=== PATIENT | female | born 1960 | race African-American/Black ===

== ENCOUNTER 2016-11-30 07:25 | Day surgery (SDC) | payer OTHER ==
[2016-11-28 13:43] VITALS: BMI 25.9
[~2016-11-30 07:25] MED LIST: TRIAMCINOLONE ACET 40MG/1ML VIAL IJ ONE
[2016-11-30] MEDS ORDERED: TRYPAN BLUE 0.5 ML DISP.SYRIN ONE (07:31)
[2016-11-30] MEDS ORDERED: CIPROFLOXACIN 0.3% EYE DROPS 5 ML BOTTLE ONE (07:36)
[2016-11-30] MEDS ORDERED: FLURBIPROFEN 0.03% OPHTH SOLN 2.5 ML BOTTLE ONE (07:36)
[2016-11-30] MEDS ORDERED: TROPICAMIDE 1% OPHTH SOLN 15 ML BOTTLE ONE (07:36)
[2016-11-30] MEDS ORDERED: PHENYLEPHRINE 2.5% OPHTH SOLN 15 ML BOTTLE ONE (07:36)
[2016-11-30] MEDS ORDERED: CYCLOPENTOLATE HCL 1% OPHTH SOLN 2 ML BOTTLE ONE (07:36)
[2016-11-30 07:40] VITALS: TEMP 98
[2016-11-30] MEDS ORDERED: ACETAMINOPHEN 325 MG TABLET (FP) PO PRN (07:50)
[2016-11-30] MEDS ORDERED: PHENYLEPHRINE 2.5% OPHTH SOLN 15 ML BOTTLE OD ONE ×3 (08:00→08:20)
[2016-11-30] MEDS ORDERED: PHENYLEPHRINE 2.5% OPHTH SOLN 15 ML BOTTLE OP SCH (08:00)
[2016-11-30] MEDS ORDERED: FLURBIPROFEN 0.03% OPHTH SOLN 2.5 ML BOTTLE OD ONE ×3 (08:00→08:20)
[2016-11-30] MEDS ORDERED: FLURBIPROFEN 0.03% OPHTH SOLN 2.5 ML BOTTLE OP SCH (08:00)
[2016-11-30] MEDS ORDERED: CIPROFLOXACIN HCL 0.3% OPHTH 2.5ML BOTTLE OD ONE ×3 (08:00→08:20)
[2016-11-30] MEDS ORDERED: CIPROFLOXACIN HCL 0.3% OPHTH 2.5ML BOTTLE OP SCH (08:00)
[2016-11-30] MEDS ORDERED: CYCLOPENTOLATE HCL 1% OPHTH SOLN 2 ML BOTTLE OP SCH (08:00)
[2016-11-30] MEDS ORDERED: CYCLOPENTOLATE HCL 1% OPHTH SOLN 2 ML BOTTLE OD ONE ×3 (08:00→08:20)
[2016-11-30] MEDS ORDERED: TROPICAMIDE 1% OPHTH SOLN 15 ML BOTTLE OP SCH (08:00)
[2016-11-30] MEDS ORDERED: TROPICAMIDE 1% OPHTH SOLN 15 ML BOTTLE OD ONE ×3 (08:00→08:20)
[2016-11-30] MEDS ORDERED: LIDOCAINE HCL 2% JELLY (5 ML/TUBE) TP ONE (09:45)
[2016-11-30] MEDS ORDERED: MIDAZOLAM HCL 2 MG/2 ML SINGLE DOSE VIAL ONE (09:57)
[2016-11-30] MEDS ORDERED: LIDOCAINE HCL 1% PRESERVATIVE FREE - 30ML VIAL IO ONE (10:09)
[2016-11-30] MEDS ORDERED: TRYPAN BLUE 0.5 ML DISP.SYRIN IO ONE (10:10)
[2016-11-30] MEDS ORDERED: CHONDROITIN SU A/HYALUR SOD 1 KIT IO ONE (10:10)
[2016-11-30] MEDS ORDERED: EPINEPHrine/PF 1 MG/1 ML (1:1,000) AMPULE IO ONE (10:11)
[2016-11-30] MEDS ORDERED: TRIAMCINOLONE ACET 40MG/1ML VIAL ONE (10:32)
[2016-11-30] MEDS ORDERED: TRIAMCINOLONE ACET 40MG/1ML VIAL IJ ONE (10:42)
[2016-11-30] MEDS ORDERED: ACETAMINOPHEN 325 MG TABLET (FP) ONE (11:25)
[2016-11-30] MEDS ORDERED: ACETAMINOPHEN 325 MG TABLET (FP) PO ONE (11:30)
[2016-11-30 12:06] VITALS: BP 122/67; PULSE 84
--- NOTE | 2016-11-30 13:18 | OP ---
DATE OF OPERATION: 11/30/2016 PREOPERATIVE DIAGNOSIS: Cataract, right eye. Associated diagnosis high myopia. POSTOPERATIVE DIAGNOSIS: Cataract, right eye. Associated diagnosis high myopia. PROCEDURE: Phacoemulsification of right cataract with posterior chamber intraocular lens implantation with capsular stain and Trypan blue. LENS USED: [id number] -5.0 diopter power. Serial No. [id number]. ANESTHESIA: Topical MAC. COMPLICATIONS: None. PROCEDURE: The patient was brought to the operating room and correctly identified, along with the operative site, as well as correct intraocular lens lorenz. She was then prepped and draped in the usual sterile fashion, including 5% Betadine solution in the conjunctival sac and an eyelid drape. An eyelid speculum was then placed into the right eye. A poor red reflex was noted as there was a dense cortical cataract. A paracentesis was created and intracameral lidocaine was given. The capsule was then stained with Trypan blue beneath an air bubble and viscoelastic injected to inflate the anterior chamber. A temporal clear corneal wound was created. A continuous circular capsulorrhexis was successfully performed. The cataract was then hydrodissected with BSS and removed with the phacoemulsification. The remaining cortical material was irrigated and aspirated from the eye. Viscoelastic was injected to inflate the capsular bag. The temporal clear corneal wound was enlarged to approximately 3 mm. The 3 piece intraocular lens implant was then inserted using the injector system into the capsular bag. Viscoelastic was irrigated and aspirated from the eye. The eye was pressurized with BSS and noted to be stable; however given the size of the wound a single 10-0 nylon suture was placed in the temporal clear corneal wound. At the end of the procedure, the anterior chamber was noted to be stable, no leakage noted from any wound. The implant noted to be within the bag and covered by the anterior capsular border. Topical vancomycin given, as well as a subconjunctival injection of Kenalog. The eye patched and shielded and the patient discharged from the operating room in a stable condition. STEPHEN MENDOZA M.D. [id number]
== END 2016-11-30 12:05 | disposition home or self-care (01) ==
LOC: JASU-SURG 07:25
PROVIDERS: ATTEND Ophthalmology
PROC: 08RJ3JZ Replacement of Right Lens with Synthetic Substitute, Percutaneous Approach (ICD-10-PCS; principal; 2016-11-30 10:00)
DX: H26.9 Unspecified cataract (principal); H52.11 Myopia, right eye

== ENCOUNTER 2016-12-14 07:46 | Day surgery (SDC) | payer OTHER ==
[2016-12-12 17:46] VITALS: BMI 25.9
[2016-12-14] MEDS ORDERED: ACETAMINOPHEN 325 MG TABLET (FP) PO PRN (07:51)
[2016-12-14] MEDS ORDERED: PHENYLEPHRINE 2.5% OPHTH SOLN 15 ML BOTTLE OP SCH (08:00)
[2016-12-14] MEDS ORDERED: FLURBIPROFEN 0.03% OPHTH SOLN 2.5 ML BOTTLE OP SCH (08:00)
[2016-12-14] MEDS ORDERED: CYCLOPENTOLATE HCL 1% OPHTH SOLN 2 ML BOTTLE OP SCH (08:00)
[2016-12-14] MEDS ORDERED: CIPROFLOXACIN HCL 0.3% OPHTH 2.5ML BOTTLE OP SCH (08:00)
[2016-12-14] MEDS ORDERED: TROPICAMIDE 1% OPHTH SOLN 15 ML BOTTLE OP SCH (08:00)
[2016-12-14] MEDS ORDERED: CIPROFLOXACIN 0.3% EYE DROPS 5 ML BOTTLE ONE (08:07)
[2016-12-14] MEDS ORDERED: CIPROFLOXACIN HCL 0.3% OPHTH 2.5ML BOTTLE OS ONE ×3 (08:15→08:30)
[2016-12-14] MEDS ORDERED: PHENYLEPHRINE 2.5% OPHTH SOLN 15 ML BOTTLE OS ONE ×3 (08:15→08:30)
[2016-12-14] MEDS ORDERED: TROPICAMIDE 1% OPHTH SOLN 15 ML BOTTLE OS ONE ×3 (08:15→08:30)
[2016-12-14] MEDS ORDERED: FLURBIPROFEN 0.03% OPHTH SOLN 2.5 ML BOTTLE OS ONE ×3 (08:15→08:30)
[2016-12-14] MEDS ORDERED: CYCLOPENTOLATE HCL 1% OPHTH SOLN 2 ML BOTTLE OS ONE ×3 (08:15→08:30)
[2016-12-14] MEDS ORDERED: LIDOCAINE HCL 1% PRESERVATIVE FREE - 30ML VIAL IO ONE (11:09)
[2016-12-14] MEDS ORDERED: LIDOCAINE HCL 2% JELLY (5 ML/TUBE) TP ONE (11:55)
[2016-12-14] MEDS ORDERED: MIDAZOLAM HCL 2 MG/2 ML SINGLE DOSE VIAL ONE (11:59)
[2016-12-14] MEDS ORDERED: TRYPAN BLUE 0.5 ML DISP.SYRIN IO ONE (12:12)
[2016-12-14] MEDS ORDERED: CHONDROITIN SU A/HYALUR SOD 1 KIT IO ONE (12:12)
[2016-12-14] MEDS ORDERED: EPINEPHrine/PF 1 MG/1 ML (1:1,000) AMPULE SQ ONE (12:13)
[2016-12-14] MEDS ORDERED: LIDOCAINE HCL/PF 2% SDV 5ML VIAL PNB ONE (12:18)
[2016-12-14 13:02] VITALS: TEMP 98
[2016-12-14 13:22] VITALS: BP 103/65; PULSE 65
--- NOTE | 2016-12-14 14:52 | OP ---
DATE OF OPERATION: 12/14/2016 SURGEON: Allen Avina M.D. PREOPERATIVE DIAGNOSIS: Mature cataract, left eye. POSTOPERATIVE DIAGNOSIS: Mature cataract, left eye. OPERATION: Phacoemulsification of left cataract with capsular staining with Trypan blue and posterior chamber intraocular lens implantation, lens used SN60AM, -5.0 Diopter power, Serial No. [id number]. ANESTHESIA: Sub-Tenon/ MAC. COMPLICATIONS: None. PROCEDURE: The patient was brought into the operating room and correctly identified along with the operative site as well as correct intraocular lens power. She was then prepped and draped in the usual sterile fashion including 5% Betadine solution in the conjunctival sac and an eyelid drape. An eyelid speculum was then placed into the left eye. A paracentesis port was created and intracameral Lidocaine was given, approximately 0.5 mL. The cataract was noted to be white and with a poor red reflex. The capsule was then stained with Trypan blue and irrigated from the eye with BSS., The anterior chamber filled with viscoelastic and a temporal clear corneal would was created. As a cystitome was placed inside the eye, the patient was noted to have frequent saccadic eye movements, and despite advising her to remain still and look straight ahead at the light, the patient still continued with the saccadic movements making visualization of the anterior capsule difficult. At this point, the decision was made to give a sub-Tenons block. Attention was paid to the inferonasal conjunctiva, and a small incision was made there with Daisy scissors, approximately 5 mm from the limbus. Then, 3 mL of 2% lidocaine were then given in the sub-Tenon space. After the block, the saccadic movement decreased and then ceased. The continuous circular capsulorrhexis was successfully performed. The nucleus was then hydro-dissected and then removed with phacoemulsification via a [id number] approach. The remaining cortical material was irrigated and aspirated from the eye. The temporal clear corneal wound was enlarged approximately 3 mm, and the lens was then injected into the bag. The remaining viscoelastic was irrigated and aspirated from the eye. All wounds were tested and found to be watertight. No suture was needed to be placed. Topical Vancomycin was given, the eye patched and shielded, and the patient discharged from the operating room in a stable condition. Rubi [id number] MTDGio
== END 2016-12-14 13:25 | disposition home or self-care (01) ==
LOC: JASU-SURG 07:46
PROVIDERS: ATTEND Ophthalmology
PROC: 08RK3JZ Replacement of Left Lens with Synthetic Substitute, Percutaneous Approach (ICD-10-PCS; principal; 2016-12-14 12:00)
DX: H25.092 Other age-related incipient cataract, left eye (principal); H55.81 Deficient saccadic eye movements

== ENCOUNTER 2019-07-31 09:39 | Emergency (ER) | payer OTHER ==
[2019-07-31 09:52] VITALS: BMI 22.7
[2019-07-31] MEDS ORDERED: SODIUM CHLORIDE 1,000 ML IV STA (11:20)
[2019-07-31] MEDS ORDERED: ACETAMINOPHEN 1000 MG/100 ML VIAL (NON FORMULARY) IVPB ONE (11:20)
--- NOTE | 2019-07-31 11:21 | PDOC ---
History of Present Illness - General Chief Complaint: Pain Stated Complaint: LWR ABD/LEG PAIN Time Seen by Provider: 07/31/19 11:02 History Source: Patient Exam Limitations: No Limitations Past History - Travel Traveled outside of the country in the last 30 days: No Close contact w/someone who was outside of country & ill: No - Past Medical History Allergies/Adverse Reactions: Allergies Allergy/AdvReac Type Severity Reaction Status Date / Time No Known Allergies Allergy Verified 07/31/19 09:52 Home Medications: Ambulatory Orders Amlodipine Besylate [Norvasc -] 10 mg PO DAILY 07/31/19 Aspirin [ASA -] 81 mg PO DAILY 07/31/19 Atorvastatin Ca [Lipitor] 20 mg PO HS 07/31/19 Losartan/Hydrochlorothiazide [Losartan-Hctz 100-25 mg Tab] 1 each PO DAILY 07/31 Metoprolol Succinate [Toprol Xl] 50 mg PO DAILY 07/31/19 Anemia: No Asthma: No Cancer: No Cardiac Disorders: Yes (tachycardia) CVA: No COPD: No CHF: No Dementia: No Diabetes: Yes (BORDERLINE) GI Disorders: No Disorders: No HTN: Yes Hypercholesterolemia: Yes Liver Disease: No Seizures: No Thyroid Disease: No - Surgical History Abdominal Surgery: (partial hysterectomy 2008) - Suicide/Smoking/Psychosocial Hx Smoking History: Never smoked Have you smoked in the past 12 months: No Number of Cigarettes Smoked Daily: 10 Information on smoking cessation initiated: No Hx Alcohol Use: Yes (3-4x a week) Drug/Substance Use Hx: No Substance Use Type: Marijuana Review of Systems - Review of Systems Able to Perform ROS?: Yes Comments:: 07/31/19 11:20 CONSTITUTIONAL: Absent: fever, chills, diaphoresis, generalized weakness, malaise, loss of appetite HEENT: Absent: rhinorrhea, nasal congestion, throat pain, throat swelling, difficulty swallowing, mouth swelling, ear pain, eye pain, visual Changes CARDIOVASCULAR: Absent: chest pain, loss of consciousness, palpitations, irregular heart rate, peripheral edema RESPIRATORY: Absent: cough, shortness of breath, dyspnea with exertion, orthopnea, wheezing, stridor, hemoptysis GASTROINTESTINAL: Present: abdominal pain Absent: abdominal distension, nausea, vomiting, diarrhea , constipation, melena, hematochezia GENITOURINARY: Absent: dysuria, frequency, urgency, hesitancy, hematuria, flank pain, genital pain MUSCULOSKELETAL: Present: b/l lower leg pain Absent: myalgia, arthralgia, joint swelling SKIN: Absent: rash, itching, pallor HEMATOLOGIC/IMMUNOLOGIC: Absent: easy bleeding, easy bruising, lymphadenopathy, frequent infections ENDOCRINE: Absent: unexplained weight gain, unexplained weight loss, heat intolerance, cold intolerance NEUROLOGIC: Absent: headache, focal weakness or paresthesias, dizziness, unsteady gait, seizure, mental status changes, bladder or bowel incontinence PSYCHIATRIC: Absent: anxiety, depression, suicidal or homicidal ideation, hallucinations. Is the patient limited Thai proficient: No *Physical Exam - Vital Signs Last Vital Signs Temp Pulse Resp BP Pulse Ox 98.3 F 92 H 19 118/76 98 07/31/19 09:49 07/31/19 09:49 07/31/19 09:49 07/31/19 09:49 07/31/19 09:49 - Physical Exam Comments: 07/31/19 11:22 GENERAL: Well developed, well nourished. Awake and alert. No acute distress. HEENT: Normocephalic, atraumatic. PERRLA, EOMI. No conjunctival pallor. Sclera are non- icteric. Moist mucous membranes. Oropharynx is clear. NECK: Supple. Full ROM. No JVD. Carotid pulses 2+ and symmetric, without bruits. No thyromegaly. No lymphadenopathy. CARDIOVASCULAR: Regular rate and rhythm. No murmurs, rubs, or gallops. Distal pulses are 2+ and symmetric. PULMONARY: No evidence of respiratory distress. Lungs clear to auscultation bilaterally. No wheezing, rales or rhonchi. ABDOMINAL: TTP of the LLQ. Soft. Non-tender. Non-distended. No rebound or guarding. No organomegaly. Normoactive bowel sounds. MUSCULOSKELETAL Normal range of motion at all joints. No bony deformities or tenderness. No CVA tenderness. EXTREMITIES: No cyanosis. No clubbing. No edema. No calf tenderness. SKIN: Warm and dry. Normal capillary refill. No rashes. No jaundice. NEUROLOGICAL: Alert, awake, appropriate. Cranial nerves 2-12 intact. No deficits to light touch and temperature in face, upper extremities and lower extremities. No motor deficits in the in face, upper extremities and lower extremities. Normoreflexic in the upper and lower extremities. Normal speech. Toes are down- going bilaterally. Gait is normal without ataxia. PSYCHIATRIC: Cooperative. Good eye contact. Appropriate mood and affect. ED Treatment Course - LABORATORY CBC & Chemistry Diagram: 07/31/19 11:50 07/31/19 11:50 Medical Decision Making - Medical Decision Making 07/31/19 15:42 The patient is a 59 y/o F with PMH of HTN, HLD, "fast heart beat", pre-diabetes , diverticulitis, presents to the ER today for lower abdominal pain for 2 weeks. She states that the pain is in the LLQ and has been persistent. She states it is a sharp pain and feels similar to when she had her diverticulitis. Denies changes in bowel movements. Denies fevers, chills, n/v/d, urinary symptoms. A/P: lower abdominal pain On exam pt with TTP of the LLQ, no rebound or guarding NAD, afebrile Labs, CTAP, IVF and ofirmev were ordered CTAP is negative for diverticulitis at this time; TVUS ordered to r/o ovarian pathology Labs with mild leukocytosis at 11. Sign out given to JONATHON Beckham. Pt pending TVUS results *DC/Admit/Observation/Transfer Diagnosis at time of Disposition: Abdominal pain Qualifiers: Abdominal location: left lower quadrant Qualified Code(s): R10.32 - Left lower quadrant pain - Referrals Referrals: Jacquelyn Bailon [Primary Care Provider] - - Patient Instructions - Post Discharge Activity
[2019-07-31] MEDS ORDERED: ACETAMINOPHEN INJECTION 100 ML IVPB ONE (11:46)
--- NOTE | 2019-07-31 11:54 | PDOC ---
*Physical Exam - Vital Signs Last Vital Signs Temp Pulse Resp BP Pulse Ox 98.3 F 92 H 19 118/76 98 07/31/19 09:49 07/31/19 09:49 07/31/19 09:49 07/31/19 09:49 07/31/19 09:49 - Physical Exam Comments: 07/31/19 11:53 The patient was examined by [SB Louise] under my direct supervision. I personally evaluated the patient. I concur with the above findings and the plan of care. ED Treatment Course - LABORATORY CBC & Chemistry Diagram: 07/31/19 11:50 07/31/19 11:50 *DC/Admit/Observation/Transfer Diagnosis at time of Disposition: Abdominal pain - Discharge Dispostion Disposition: HOME Condition at time of disposition: Stable - Referrals Referrals: Lynette Hi MD [Staff Physician] - Crescencio Bee MD [Staff Physician] - Jacquelyn Bailon [Primary Care Provider] - - Patient Instructions Printed Discharge Instructions: DI for Abdominal Pain-Adult Additional Instructions: As discussed, your CT and ultrasound results did not show any acute emergencies today. Please follow up with the consulting practice director within the next week for further evaluation of your intermittent abdominal pain. If you develop any fever, vomiting, diarrhea, or any new or worsening symptoms, please return to the ER immediately. - Post Discharge Activity
[2019-07-31 12:09] LABS: URINE APPEARANCE CLEAR; URINE BILIRUBIN NEGATIVE (NEGATIVE); URINE COLOR YELLOW; URINE GLUCOSE (UA) NEGATIVE (NEGATIVE); URINE KETONE NEGATIVE (NEGATIVE); URINE LEUK ESTERASE NEGATIVE (NEGATIVE); URINE NITRITE NEGATIVE (NEGATIVE); URINE PROTEIN NEGATIVE (NEGATIVE); URINE UROBILINOGEN 0.2 mg/dL (0.2-1.0)
[2019-07-31 12:12] LABS: BASO % 0.4 % (0-2.0); EOS % 0.7 % (0-4.5); HEMATOCRIT 34.8 % (32.4-45.2); HEMOGLOBIN 12.1 GM/dL (10.7-15.3); LYMPH % 21.6 % (8-40); MCH 30.6 pg (25.7-33.7); MCHC 34.8 g/dl (32.0-36.0); MEAN CELL VOLUME 87.9 fl (80-96); MONO % 6.4 % (3.8-10.2); NEUT % 70.9 % (42.8-82.8); PLATELET COUNT 376 K/MM3 (134-434); RBC 3.96 M/mm3 (3.60-5.2); WHITE BLOOD COUNT 11.9 K/mm3 (4.0-10.0)
[2019-07-31 12:16] LABS: INR 1.07 (0.83-1.09); PROTHROMBIN TIME (PATIENT) 12.6 SEC (9.7-13.0)
[2019-07-31 12:41] LABS: ALBUMIN 4.3 g/dl (3.4-5.0); BILIRUBIN,TOTAL 0.8 mg/dL (0.2-1); BLOOD UREA NITROGEN 16.1 mg/dL (7-18); CALCIUM 10.1 mg/dL (8.5-10.1); POTASSIUM 3.4 mmol/L (3.5-5.1); TOT PROT 8.5 g/dl (6.4-8.2)
--- NOTE | 2019-07-31 15:07 | EKG ---
Test Reason : Blood Pressure : / mmHG Vent. Rate : 085 BPM Atrial Rate : 085 BPM P-R Int : 144 ms QRS Dur : 094 ms QT Int : 402 ms P-R-T Axes : 061 013 020 degrees QTc Int : 478 ms POOR DATA QUALITY, INTERPRETATION MAY BE ADVERSELY AFFECTED NORMAL SINUS RHYTHM NONSPECIFIC ST AND T WAVE ABNORMALITY ABNORMAL ECG WHEN COMPARED WITH ECG OF 18-APR-2011 12:51, T WAVE INVERSION NOW EVIDENT IN ANTERIOR LEADS Confirmed by REJI HICKMAN, CECE ([id number]) on 07/31/2019 3:07:16 PM Referred By: Confirmed By:CECE MENDOZA MD
[2019-07-31 15:27] VITALS: TEMP 97.4
--- NOTE | 2019-07-31 16:19 | PDOC ---
*Physical Exam - Vital Signs Last Vital Signs Temp Pulse Resp BP Pulse Ox 97.4 F L 81 18 116/71 98 07/31/19 15:27 07/31/19 15:27 07/31/19 15:27 07/31/19 15:27 07/31/19 15:27 - Physical Exam Comments: 07/31/19 16:17 Sign-out received from outgoing ER provider Noelle. Pt interviewed and examined. Ancillary studies reviewed. Awaiting TVUS results. TVUS without evidence of acute pathology, patient is s/p hysterectomy. Ovaries not visualized . 07/31/19 16:22 Patient reassessed, at this time patient states she is feeling better. She reports that the pain has significantly decreased and is ready to go home. Discussed results of US and CT with patient. Advised patient to f/u with GI this week and of signs and symptoms for return to ER ; patient verbalized understanding and agrees to plan. ED Treatment Course - LABORATORY CBC & Chemistry Diagram: 07/31/19 11:50 07/31/19 11:50 - ADDITIONAL ORDERS Additional order review: Laboratory Results 07/31/19 07/31/19 07/31/19 11:50 11:50 11:50 PT with INR 12.60 INR 1.07 Sodium 138 Potassium 3.4 L Chloride 102 Carbon Dioxide 27 Anion Gap 9 BUN 16.1 Creatinine 1.0 Est GFR (CKD-EPI)AfAm 71.92 Est GFR (CKD-EPI)NonAf 62.05 Random Glucose 118 H Calcium 10.1 Total Bilirubin 0.8 AST 16 ALT 27 Alkaline Phosphatase 81 Total Protein 8.5 H Albumin 4.3 Urine Color Yellow Urine Appearance Clear Urine pH 7.0 Ur Specific [place] 1.013 Urine Protein Negative Urine Glucose (UA) Negative Urine Ketones Negative Urine Blood Negative Urine Nitrite Negative Urine Bilirubin Negative Urine Urobilinogen 0.2 Ur Leukocyte Esterase Negative 07/31/19 11:50 RBC 3.96 MCV 87.9 MCHC 34.8 RDW 13.0 MPV 8.0 Neutrophils % 70.9 Lymphocytes % 21.6 Monocytes % 6.4 Eosinophils % 0.7 Basophils % 0.4 - Medications Given in the ED: ED Medications Discontinued Medications Generic Name Dose Route Start Last Admin Trade Name Freq PRN Reason Stop Dose Admin Acetaminophen 1,000 mg 07/31/19 11:20 09/18/19 12:08 Ofirmev Injection - IVPB 07/31/19 11:21 1,000 mg ONCE ONE Administration Sodium Chloride 1,000 mls @ 1,000 mls/hr 07/31/19 11:20 07/31/19 12:08 Normal Saline - IV 07/31/19 12:19 1,000 mls/hr ASDIR STA Administration *DC/Admit/Observation/Transfer Diagnosis at time of Disposition: Abdominal pain Qualifiers: Abdominal location: left lower quadrant Qualified Code(s): R10.32 - Left lower quadrant pain - Discharge Dispostion Disposition: HOME Condition at time of disposition: Stable Decision to Admit order: No - Referrals Referrals: Jacquelyn Bailon [Primary Care Provider] - Crescencio Bee MD [Staff Physician] - Lynette Hi MD [Staff Physician] - - Patient Instructions Printed Discharge Instructions: DI for Abdominal Pain-Adult Additional Instructions: As discussed, your CT and ultrasound results did not show any acute emergencies today. Please follow up with the bump grader operator within the next week for further evaluation of your intermittent abdominal pain. If you develop any fever, vomiting, diarrhea, or any new or worsening symptoms, please return to the ER immediately. - Post Discharge Activity
[2019-07-31 17:09] VITALS: BP 114/75; PULSE 86
== END 2019-07-31 17:09 | disposition home or self-care (01) ==
LOC: JER 09:39
PROC: 3E033NZ Introduction of Analgesics, Hypnotics, Sedatives into Peripheral Vein, Percutaneous Approach (ICD-10-PCS; principal; 2019-07-31)
DX: R10.32 Left lower quadrant pain (principal); I10 Essential (primary) hypertension; E78.00 Pure hypercholesterolemia, unspecified; R73.03 Prediabetes
CPT/HCPCS: 36415; 74177-TC; 76830-TC; 80053; 81003; 85025; 85610; 87086; 93005; 93010; 99283-25; J0131; J7030

== ENCOUNTER → 2024-07-03 | Day surgery (SDC) | payer OTHER | END | disposition home or self-care (01) | LOC: JRADIR 08:35 | PROVIDERS: ATTEND Internal Medicine Endocrinology, Diabetes & Metabolism | PROC: 0G9K3ZX Drainage of Thyroid Gland, Percutaneous Approach, Diagnostic (ICD-10-PCS; principal; 2024-07-03) | DX: E04.1 Nontoxic single thyroid nodule (principal) | CPT/HCPCS: 10005; 76942; 88173; 88305-TC ==